=== PATIENT | female | born 1980 | race Caucasian/White ===

== ENCOUNTER → 2016-10-28 | Outpatient (CLI) | payer MEDICAID ==
[~2016-10-28] MED LIST: BACT800T5 PO; CHOL50006 PO; FERR325T PO; IRON18TA2 PO; KLOR10TA8 PO; LISI20 PO; LOMO2.5T PO; PRED5SOL PO; ZOFR4TAB3 SL
[2016-10-28 10:35] LABS: HEMATOCRIT 34.4 % (35.0-46.0); MEAN CELL VOLUME 71.1 FL (80.0-100.0); MEAN CORPUSCULAR HEMOGLOBIN 23.3 PG (27.0-34.0); MEAN CORPUSCULAR HGB CONC 32.7 % (32.0-36.0); PLATELET COUNT 249 TH/MM3 (150-450); RED BLOOD COUNT 4.83 MIL/MM3 (4.00-5.30); RED CELL DISTRIBUTION WIDTH 17.7 % (11.6-17.2); WHITE BLOOD COUNT 12.5 TH/MM3 (4.0-11.0)
[2016-10-28 10:39] LABS: REVIEW FLAG FINAL
[2016-10-28 10:56] LABS: BICARBONATE 27.1 MEQ/L (21.0-32.0); POTASSIUM 3.7 MEQ/L (3.5-5.1)
[2016-10-28 11:00] LABS: BACTERIA, URINE OCC /hpf; BLOOD, URINE LARGE (NEG); GLUCOSE,URINE NEG (NEG); KETONE, URINE NEG (NEG); MUCUS URINE FEW /lpf (OCC); NITRITE,URINE NEG (NEG); PH, URINE 7.5 (5.0-8.5); SQUAMOUS EPITHELIAL CELL URINE 12 /hpf (0-5)
[2016-10-28 11:03] LABS: URINE COLOR RED (YELLW/STRAW)
== END ==
LOC: CLAB 10:06
PROVIDERS: ATTEND Internal Medicine Nephrology
DX: N39.0 Urinary tract infection, site not specified (principal); N18.1 Chronic kidney disease, stage 1; E55.9 Vitamin D deficiency, unspecified
CPT/HCPCS: 36415; 80069; 81001; 82306; 82570; 84156; 85027; 87086

== ENCOUNTER → 2016-10-30 | Outpatient (CLI) | payer MEDICAID, OTHER ==
[2016-10-30 15:25] LABS: BICARBONATE 25.4 MEQ/L (21.0-32.0); POTASSIUM 3.8 MEQ/L (3.5-5.1)
[2016-10-31 09:55] LABS: STREP ANTIBODY SCREEN POS (NEG); STREP ANTIBODY TITER 200 IU/mL (0-99)
[2016-11-02 15:53] LABS: MYELOPEROXIDASE LESS THAN 1.0 AI (<1.0); PROTEINASE-3 LESS THAN 1.0 AI (<1.0)
== END ==
LOC: CLAB 14:13
PROVIDERS: ATTEND Internal Medicine Nephrology
DX: N00.9 Acute nephritic syndrome with unspecified morphologic changes (principal); N39.0 Urinary tract infection, site not specified; J02.0 Streptococcal pharyngitis
CPT/HCPCS: 36415; 80048; 82784; 86021; 86160; 86162; 86403; 86406; 87086

== ENCOUNTER → 2016-11-22 | Outpatient (CLI) | payer MEDICAID, OTHER ==
[2016-11-22 09:33] LABS: BICARBONATE 25.8 MEQ/L (21.0-32.0)
[2016-11-22 09:45] LABS: BLOOD, URINE MOD (NEG); GLUCOSE,URINE NEG (NEG); KETONE, URINE NEG (NEG); MUCUS URINE FEW /lpf (OCC); NITRITE,URINE NEG (NEG); PH, URINE 7.5 (5.0-8.5); SQUAMOUS EPITHELIAL CELL URINE 11 /hpf (0-5); URINE COLOR YELLOW (YELLW/STRAW)
[2016-11-22 14:53] LABS: STREP ANTIBODY SCREEN POS (NEG); STREP ANTIBODY TITER 200 IU/mL (0-99)
== END ==
LOC: CLAB 08:25
PROVIDERS: ATTEND Physician Assistant
DX: R31.9 Hematuria, unspecified (principal); A49.1 Streptococcal infection, unspecified site; N18.1 Chronic kidney disease, stage 1
CPT/HCPCS: 36415; 80069; 81001; 86403; 86406; 87086

== ENCOUNTER → 2016-12-10 | Outpatient (CLI) | payer MEDICAID ==
[2016-12-10 11:06] LABS: MEAN CELL VOLUME 71.4 FL (80.0-100.0); MEAN CORPUSCULAR HEMOGLOBIN 23.4 PG (27.0-34.0); MEAN CORPUSCULAR HGB CONC 32.8 % (32.0-36.0); PLATELET COUNT 280 TH/MM3 (150-450); RED BLOOD COUNT 5.04 MIL/MM3 (4.00-5.30); RED CELL DISTRIBUTION WIDTH 17.6 % (11.6-17.2); WHITE BLOOD COUNT 9.1 TH/MM3 (4.0-11.0)
[2016-12-10 11:08] LABS: REVIEW FLAG FINAL
[2016-12-10 11:17] LABS: BACTERIA, URINE FEW /hpf; BLOOD, URINE MOD (NEG); GLUCOSE,URINE NEG (NEG); KETONE, URINE NEG (NEG); MUCUS URINE MOD /lpf (OCC); NITRITE,URINE NEG (NEG); SQUAMOUS EPITHELIAL CELL URINE 6 /hpf (0-5); URINE COLOR YELLOW (YELLW/STRAW)
[2016-12-10 13:07] LABS: STREP ANTIBODY SCREEN POS (NEG); STREP ANTIBODY TITER 200 IU/mL (0-99)
== END ==
LOC: CLAB 10:35
PROVIDERS: ATTEND Physician Assistant
DX: N18.1 Chronic kidney disease, stage 1 (principal); A49.1 Streptococcal infection, unspecified site; R31.9 Hematuria, unspecified; R82.90 Unspecified abnormal findings in urine
CPT/HCPCS: 36415; 80069; 81001; 82570; 83970; 84156; 85027; 86403; 86406; 87086

== ENCOUNTER 2017-01-07 07:33 | Emergency (ER) | payer MEDICAID, OTHER ==
[~2017-01-07 07:33] MED LIST changes: -BACT800T5 PO; -LOMO2.5T PO; -ZOFR4TAB3 SL
[2017-01-07 07:34] VITALS: BP 154/103; PULSE 87; RESP 16; TEMP 98.6; O2SAT 99
[2017-01-07] MEDS ORDERED: SODIUM CHLOR 0.9% 1000 ML INJ 1,000 ML IV SCH (08:28)
[2017-01-07] MEDS ORDERED: ONDANSETRON HCL 4 MG/2 ML VIAL IVP ONE (08:30)
--- NOTE | 2017-01-07 08:30 | PD ---
HPI Chief Complaint: GI Complaint Time Seen by Provider: 08:16 Travel History International Travel<30 days: No Contact w/Intl Traveler<30days: No Traveled to known affect area: No History of Present Illness HPI 36-year-old female complains of abdominal cramping, nausea vomiting and right low back pain. Patient states that the symptoms started yesterday. Patient states that she has intermittent nausea vomiting and diarrhea. Patient denies any blood or mucus in the stool. Patient states that she has mild intermittent abdominal cramping. Patient started having aching right low back pain since last night. Patient states that she has history intermittent dark urine from IgA nephropathy and kidney stone in the past. Patient was seen by specialists in the past for that. Patient denies any vaginal discharge or bleeding. Patient denies any fever chills. On a scale of 1-10 the pain is a 6. PFSH Past Medical History Asthma: Yes Cancer: No Cardiovascular Problems: No Diabetes: No Diminished Hearing: No Endocrine: No Genitourinary: Yes Hepatitis: No Hiatal Hernia: No Hypertension: Yes Immune Disorder: No Musculoskeletal: No Neurologic: No Psychiatric: No Reproductive: No Respiratory: No Renal Failure: Yes (resolved? back pain and dark urine today) Thyroid Disease: No Tetanus Vaccination: < 5 Years Influenza Vaccination: Yes ?: Not LMP: 12/23/2016 Menopausal: No : 2 Para: 2 Miscarriage: 1 Ectopic : No Ovarian Cysts: No Tubal Ligation: Yes Past Surgical History Abdominal Surgery: Yes () AICD: No Section: Yes (2, last 2014) Gynecologic Surgery: Yes (2 CSECTIONS) Hysterectomy: No Joint Replacement: No Pacemaker: No Social History Alcohol Use: No Tobacco Use: No Substance Use: No Allergies-Medications (Allergen,Severity, Reaction): Coded Allergies: Latex (Verified Allergy, Intermediate, SWELLING, 01/07/17) Aspirin (Verified Allergy, Mild, Rash, 01/07/17) Penicillin (Verified Allergy, Mild, Rash, 01/07/17) Reported Meds & Prescriptions Reported Meds & Active Scripts Active Prinivil 20 mg (Lisinopril) 20 Mg Tab 20 Mg PO DAILY Reported Iron (Ferrous Sulfate) 325 Mg Tab 325 Mg PO DAILY Iron (Ferrous Sulfate) 18 Mg Tab 18 Mg PO Vitamin D (Cholecalciferol) 5,000 Unit Tab 50,000 Unit PO DAILY Prednisone 5 Mg/5 Ml Melissa 15 Mg PO DAILY Klor-Con M10 (Potassium Chloride Microencaps) 10 Meq Tab 10 Meq PO MOWEFRSA TAKE 1 TABLET (10MEQ) ON MONDAYS, WEDNESDAYS, FRIDAYS AND SATURDAYS Review of Systems General / Constitutional: No: Fever Eyes: No: Visual changes HENT: No: Headaches Cardiovascular: No: Chest Pain or Discomfort Respiratory: No: Shortness of Breath Gastrointestinal: Positive: Nausea, Vomiting, Diarrhea, Abdominal Pain Genitourinary: No: Dysuria Musculoskeletal: No: Pain Skin: No Rash Neurologic: No: Weakness Psychiatric: No: Depression Endocrine: No: Polydipsia Hematologic/Lymphatic: No: Easy Bruising Physical Exam Narrative GENERAL: Well-nourished, well-developed patient. SKIN: Focused skin assessment warm/dry. HEAD: Normocephalic. EYES: No scleral icterus. No injection or drainage. NECK: Supple, trachea midline. No JVD or lymphadenopathy. CARDIOVASCULAR: Regular rate and rhythm without murmurs, gallops, or rubs. RESPIRATORY: Breath sounds equal bilaterally. No accessory muscle use. GASTROINTESTINAL: Abdomen soft, non-tender, nondistended. MUSCULOSKELETAL: No cyanosis, or edema. BACK: Mild tenderness on palpation right low back area, without obvious deformity. No CVA tenderness. Neurologic exam normal. Data Data Last Documented VS Vital Signs Date Time Temp Pulse Resp B/P Pulse Ox O2 Delivery O2 Flow Rate FiO2 01/07/17 09:36 76 16 143/86 96 Room Air 01/07/17 07:34 98.6 Orders Complete Blood Count With Diff (01/07/17 08:28) Comprehensive Metabolic Panel (01/07/17 08:28) Prothrombin Time / Inr (Pt) (01/07/17 08:28) Act Partial Throm Time (Ptt) (01/07/17 08:28) Urinalysis - C+S If Indicated (01/07/17 08:28) Ct Abd/Pel W/O Iv Contrast (01/07/17 08:28) Iv Access Insert/Monitor (01/07/17 08:28) Ecg Monitoring (01/07/17 08:28) Oximetry (01/07/17 08:28) Ondansetron Inj (Zofran Inj) (01/07/17 08:30) Sodium Chlor 0.9% 1000 Ml Inj (Ns 1000 M (01/07/17 08:28) Urine Culture (01/07/17 08:20) Acetaminophen (Tylenol) (01/07/17 09:45) Labs Laboratory Tests Test 01/07/17 01/07/17 08:15 08:20 White Blood Count 6.0 TH/MM3 Red Blood Count 5.25 MIL/MM3 Hemoglobin 12.2 GM/DL Hematocrit 38.1 % Mean Corpuscular Volume 72.5 FL Mean Corpuscular Hemoglobin 23.2 PG Mean Corpuscular Hemoglobin 32.0 % Concent Red Cell Distribution Width 17.2 % Platelet Count 232 TH/MM3 Mean Platelet Volume 9.5 FL Neutrophils (%) (Auto) 57.5 % Lymphocytes (%) (Auto) 29.6 % Monocytes (%) (Auto) 9.8 % Eosinophils (%) (Auto) 2.6 % Basophils (%) (Auto) 0.5 % Neutrophils # (Auto) 3.4 TH/MM3 Lymphocytes # (Auto) 1.8 TH/MM3 Monocytes # (Auto) 0.6 TH/MM3 Eosinophils # (Auto) 0.2 TH/MM3 Basophils # (Auto) 0.0 TH/MM3 CBC Comment AUTO DIFF Differential Comment AUTO DIFF CONFIRMED Prothrombin Time 12.6 SEC Prothromb Time International 1.1 RATIO Ratio Activated Partial 27.8 SEC Thromboplast Time Sodium Level 136 MEQ/L Potassium Level 3.4 MEQ/L Chloride Level 104 MEQ/L Carbon Dioxide Level 23.6 MEQ/L Anion Gap 8 MEQ/L Blood Urea Nitrogen 10 MG/DL Creatinine 0.74 MG/DL Estimat Glomerular Filtration 89 ML/MIN Rate Random Glucose 91 MG/DL Calcium Level 8.5 MG/DL Total Bilirubin 0.3 MG/DL Aspartate Amino Transf 26 U/L (AST/SGOT) Alanine Aminotransferase 22 U/L (ALT/SGPT) Alkaline Phosphatase 88 U/L Total Protein 7.7 GM/DL Albumin 3.0 GM/DL Urine Color BROWN Urine Turbidity CLOUDY Urine pH 6.0 Urine Specific [place] 1.030 Urine Protein 300 mg/dL Urine Glucose (UA) NEG mg/dL Urine Ketones 10 mg/dL Urine Occult Blood LARGE Urine Nitrite NEG Urine Bilirubin NEG Urine Urobilinogen LESS THAN 2.0 MG/DL Urine Leukocyte Esterase TRACE Urine RBC /hpf Urine WBC 40 /hpf Urine Squamous Epithelial 44 /hpf Cells Urine Bacteria MOD /hpf Urine Hyaline Casts 17 /lpf Urine Mucus MOD /lpf Urine Yeast (Budding) MANY Microscopic Urinalysis Comment CULTURE INDICATED MDM Medical Decision Making Medical Screen Exam Complete: Yes Emergency Medical Condition: Yes Interpretation(s) Last Impressions Abdomen/Pelvis CT 01/07/1728 Signed Impressions: Service Date/Time: Saturday, January 07, 2017 09:50 - CONCLUSION: Punctate 1 mm nonobstructing stone seen in the collecting system of the left kidney. No definite abnormality to explain the patient's flank pain identified. Matty Nevarez MD 11:11 AM. CBC within normal limit. MCV 72.5. Potassium 3.4. UA positive for RBC WBC and bacteria and yeast. Differential Diagnosis Differential diagnosis including gastroenteritis, dehydration, electrolyte imbalance, gastritis, PUD, pancreatitis, cholecystitis, colitis, UTI, pyelonephritis, nephrolithiasis. Narrative Course 36-year-old female with abdominal cramping, nausea vomiting, right low back pain , dark urine. History of IgA nephropathy and kidney stone. Normal saline solution 1 25 cc an hour. Zofran 4 mg IV. Diagnosis Primary Impression: Gastroenteritis Additional Impression: UTI (urinary tract infection) Qualified Code: N30.01 - Acute cystitis with hematuria Patient Instructions: General Instructions Additional Instructions: Take medications as directed. Clear fluids today and advance diet as tolerated. Follow-up with personal physician and urologist. Return if persistent problem or worse. Med/Other Pt SpecificInfo: Prescription(s) given Scripts Diphenoxylate-Atropine (Lomotil)2.5-0.025 Mg Tab1 Tab PO Q6H PRN (DIARRHEA) #10 TAB Ref 0 Prov:Saul Yeung MD 01/07/17 Ondansetron Odt (Zofran Odt)4 Mg Tab4 Mg SL Q6HR PRN (Nausea/Vomiting) #10 TAB Prov:Saul Yeung MD 01/07/17 Sulfamethoxazole-Trimethoprim (Bactrim DS)800-160 Mg Tab1 Tab PO BID #14 TAB Prov:Saul Yeung MD 01/07/17 Disposition: 01 DISCHARGE HOME Condition: Stable Saul Yeung MD January 07, 2017 08:30
[2017-01-07 09:25] LABS: APTT (PATIENT) 27.8 SEC (24.3-30.1); INTERNATIONAL NORMALIZED RATIO 1.1 RATIO; PROTHROMBIN TIME - PATIENT 12.6 SEC (9.8-11.6)
[2017-01-07 09:33] LABS: AUTOMATED NEUTROPHIL # 3.4 TH/MM3 (1.8-7.7); BASOPHIL % 0.5 % (0.0-2.0); EOSINOPHIL # 0.2 TH/MM3 (0-0.4); EOSINOPHIL % 2.6 % (0.0-4.0); HEMATOCRIT 38.1 % (35.0-46.0); LYMPH % 29.6 % (9.0-44.0); LYMPHOCYTE # 1.8 TH/MM3 (1.0-4.8); MEAN CELL VOLUME 72.5 FL (80.0-100.0); MEAN CORPUSCULAR HEMOGLOBIN 23.2 PG (27.0-34.0); MONO % 9.8 % (0.0-8.0); NEUT % 57.5 % (16.0-70.0); PLATELET COUNT 232 TH/MM3 (150-450); RED BLOOD COUNT 5.25 MIL/MM3 (4.00-5.30); RED CELL DISTRIBUTION WIDTH 17.2 % (11.6-17.2)
[2017-01-07 09:36] VITALS: BP 143/86; PULSE 76; RESP 16; O2SAT 96
[2017-01-07 09:36] LABS: HEMO FLAGS AUTO DIFF
[2017-01-07 09:38] LABS: ANION GAP 8 MEQ/L (5-15); AST (GOT) 26 U/L (15-37); BICARBONATE 23.6 MEQ/L (21.0-32.0); BLOOD UREA NITROGEN 10 MG/DL (7-18); CHLORIDE 104 MEQ/L (98-107); GLOMERULAR FILTRATION RATE 89 ML/MIN (>89); POTASSIUM 3.4 MEQ/L (3.5-5.1); SODIUM (NA) 136 MEQ/L (136-145)
[2017-01-07 09:40] LABS: BACTERIA, URINE MOD /hpf; BLOOD, URINE LARGE (NEG); COMMENT (UR) CULTURE INDICATED; CULTURE IF INDICATED CULTURE INDICATED; GLUCOSE,URINE NEG (NEG); HYALINE CAST, URINE 17 /lpf (RARE); KETONE, URINE 10 mg/dL (NEG); MUCUS URINE MOD /lpf (OCC); NITRITE,URINE NEG (NEG); SQUAMOUS EPITHELIAL CELL URINE 44 /hpf (0-5)
[2017-01-07 09:41] LABS: URINE COLOR BROWN (YELLW/STRAW)
[2017-01-07 09:41] LABS: ALKALINE PHOSPHATASE 88 U/L (45-117); ALT (GPT) 22 U/L (10-53); TOTAL BILIRUBIN ADULT 0.3 MG/DL (0.2-1.0)
[2017-01-07] MEDS ORDERED: ACETAMINOPHEN 325 MG TAB PO ONE (09:45)
[2017-01-07 10:02] LABS: SCAN/DIFF AUTO DIFF CONFIRMED
--- NOTE | 2017-01-07 10:13 | RADRPT ---
EXAM DATE/TIME: 01/07/2017 09:50 [facility] COMPARISON: CT NEEDLE BIOPSY RENAL, LEFT, January 29, 2016, 9:11. INDICATIONS : Right lower back pain. History of kidney stones. ORAL CONTRAST: No oral contrast ingested. RADIATION DOSE: 6.88 CTDIvol (mGy) MEDICAL HISTORY : Hypertension. Renal calculi. IGA nephropathy SURGICAL HISTORY : Tubal ligation. ENCOUNTER: Initial ACUITY: 2 days PAIN SCALE: 0/10 LOCATION: Right flank TECHNIQUE: Volumetric scanning of the abdomen and pelvis was performed. Using automated exposure control and ad justment of the mA and/or kV according to patient size, radiation dose was kept as low as reasonably achievable to obtain optimal diagnostic quality images. FINDINGS: The limited portion of the lung base visualized is clear. Right kidney/ureter: The right kidney is normal in size. No stones are seen. The ureter is followed throughout its course and is unremarkable in appearance. Left kidney/ureter: The left kidney is normal in size. There is a 1 mm nonobstructing stone seen within the collecting sy stem. There is no hydronephrosis. The left ureter is followed throughout its course and is unremarkab le in appearance. Bladder: No stones are identified within the bladder. CT source data: The appearance of the liver is within normal limits by noncontrast CT imaging. The spleen is at the u pper limits of normal in size. There are punctate granulomatous calcifications within the spleen. The visualized loops of small and large bowel are unremarkable. No free air or free fluid is seen. No re troperitoneal lymph adenopathy is identified. No inflammatory changes are seen within the region of t he appendix. The reproductive organs are intact. No iliac or inguinal adenopathy is seen. The bony st ructures are grossly intact. CONCLUSION: Punctate 1 mm nonobstructing stone seen in the collecting system of the left kidney. No definite abno rmality to explain the patient's flank pain identified. Matty Nevarez MD on January 07, 2017 at 10:08 Board Certified Radiologist. This report was verified electronically.
[2017-01-07] MEDS ORDERED: BACT800T5 PO (11:19)
[2017-01-07] MEDS ORDERED: LOMO2.5T PO (11:19)
[2017-01-07] MEDS ORDERED: ZOFR4TAB3 SL (11:19)
== END 2017-01-07 11:53 | disposition home or self-care (01) ==
LOC: NEPC 07:33
DX: K52.9 Noninfective gastroenteritis and colitis, unspecified (principal); N39.0 Urinary tract infection, site not specified; B96.89 Other specified bacterial agents as the cause of diseases classified elsewhere; I10 Essential (primary) hypertension; Z88.0 Allergy status to penicillin; Z88.6 Allergy status to analgesic agent
CPT/HCPCS: 74176; 80053; 81001; 85025; 85610; 85730; 87086; 96374; 99284; J2405; J7030